=== PATIENT | male | born 1950 | race Caucasian/White ===

== ENCOUNTER 2019-01-15 07:41 | Day surgery (SDC) | payer MEDICARE ==
[2019-01-15] MEDS ORDERED: Lactated Ringers 1,000 ML IV SCH (08:15)
[2019-01-15] MEDS ORDERED: Propofol 200 MG/20 ML SDV ONE (09:22)
[2019-01-15] MEDS ORDERED: fentaNYL 100 MCG/2 ML SDV ONE (09:23)
[2019-01-15 10:57] VITALS: BP 112/82; PULSE 50
--- NOTE | 2019-01-15 15:37 | OR ---
DATE OF PROCEDURE: 01/15/2019 SURGEON: Walter Almonte MD PREOPERATIVE DIAGNOSIS: History of Woods's esophagus. POSTOPERATIVE DIAGNOSIS: History of Woods's esophagus. PROCEDURE: Esophagogastroduodenoscopy with biopsy of gastroesophageal junction. ANESTHESIA: IV anesthesia with monitored anesthesia care. INDICATION: This 68-year-old white male is referred for an upper endoscopy because of a history of Woods's esophagus. I counseled him for the procedure including risks and alternatives, and he gave his informed consent to proceed. DESCRIPTION OF PROCEDURE: The patient was placed in the left lateral decubitus position. IV anesthesia was administered by the Anesthesia Service. Time-out was held. The flexible video Olympus upper endoscope was passed through his mouth, down his esophagus, and into his stomach. The scope was easily passed through the pylorus into the duodenum reaching its third portion. The scope was then slowly withdrawn examining the mucosa throughout. The duodenal mucosa appeared unremarkable. The scope was brought up through the pylorus into the antrum. The antrum appeared unremarkable. The scope was retroflexed. The proximal stomach appeared unremarkable. The scope was straightened and brought up to the GE junction. The Z-line was not straight. We did obtain multiple, totalling at least 6 biopsies of the gastroesophageal junction. The scope was then brought proximal through the remainder of the esophagus, which otherwise appeared unremarkable and it was removed. He tolerated the procedure well. Walter Almonte MD /[id number]
== END 2019-01-15 11:05 | disposition home or self-care (01) ==
LOC: JP.SDS 07:41
PROVIDERS: ATTEND Surgery
DX: K31.89 Other diseases of stomach and duodenum (principal); K22.70 Barrett's esophagus without dysplasia; I12.9 Hypertensive chronic kidney disease with stage 1 through stage 4 chronic kidney disease, or unspecified chronic kidney disease; E11.22 Type 2 diabetes mellitus with diabetic chronic kidney disease; N18.9 Chronic kidney disease, unspecified; K21.9 Gastro-esophageal reflux disease without esophagitis; E03.9 Hypothyroidism, unspecified; Z86.010 Personal history of colon polyps
CPT/HCPCS: 88305; J2704; J3010; J7120

== ENCOUNTER 2020-04-15 08:45 | Day surgery (SDC) | payer MEDICARE ==
[2020-04-15] MEDS ORDERED: Lidocaine 1% with EPINEPHrine 1:100,000 50 ML MDV ONE (09:27)
[2020-04-15] MEDS ORDERED: Bupivacaine 0.5% 50 ML MDV ONE (09:27)
[2020-04-15] MEDS ORDERED: fentaNYL 100 MCG/2 ML SDV ONE (09:38)
[2020-04-15] MEDS ORDERED: Lidocaine 0.5% 50 ML SDV ONE (09:39)
[2020-04-15] MEDS ORDERED: Propofol 200 MG/20 ML SDV ONE ×2 (09:39→10:47)
[2020-04-15] MEDS ORDERED: Dextrose 5%-Lactated Ringers 1,000 ML IV SCH (10:00)
[2020-04-15] MEDS ORDERED: ceFAZolin 2 GM in Sodium Chloride 0.9% 100 ML IV ONE (10:45)
[2020-04-15] MEDS ORDERED: ceFAZolin 2 GM in Premix Bag 1 BAG IV ONE (10:45)
[2020-04-15] MEDS ORDERED: Acetaminophen 325 MG Tab PO ONE (12:45)
[2020-04-15 13:17] VITALS: BP 136/86; PULSE 55
--- NOTE | 2020-04-19 09:21 | OR ---
DATE OF PROCEDURE: 04/15/2020 SURGEON: Bryan Alcantara MD PREOPERATIVE DIAGNOSIS: Foreign body (wooden splinter), left hand. POSTOPERATIVE DIAGNOSIS: Foreign body (wooden splinter), left hand. OPERATIVE PROCEDURE: Removal of foreign body (a wooden splinter) of the left hand (58052). ANESTHESIA: IV block plus sedation. INDICATION FOR PROCEDURE: A 69-year-old who earlier this week was working on a board, resulted in a large sliver going into the hypothenar aspect of the left hand on the ulnar aspect. This apparently broke off and the patient was seen in a walk-in clinic and referred for surgical evaluation. The patient has 2 puncture sites, both approximately 2 cm away in the ulnar aspect of palm, and states that on the inner aspect, the wooden stick was out on the skin and he attempted pulling it out and it broke off. He has some palpable wood more or less throughout the length of the 2 puncture sites with some inflammation, but not He was started on Keflex per the walk-in clinic. Plan is to proceed with removal of foreign body. This likely will involve an incision over the entire length of the area in order to ensure that we are getting the entire length of foreign body out. Potential risks including bleeding and infection were reviewed. The patient is up-to-date on his tetanus and we will be covering with perioperative antibiotics. DETAILS OF PROCEDURE: The patient was taken to the operating room, placed in a supine position. IV sedation was administered following an IV block affecting the left hand was placed and those areas prepped and draped. Incision between the 2 points was then made and carried down through the tract of the splinter. The splinter was then retrieved in 2 pieces. Careful inspection of the tract revealed no additional . In order to facilitate somewhat faster healing, a single subdermal stitch of 5-0 Vicryl stitch was placed and dressing applied. The wound would otherwise be allowed to heal secondarily. He will begin finishing off his IV antibiotics and follow up with in [facility] next week. Bryan Alcantara MD /[id number]
== END 2020-04-15 13:28 | disposition home or self-care (01) ==
LOC: JP.SDS 08:45
PROVIDERS: ATTEND Surgery
DX: S61.442A Puncture wound with foreign body of left hand, initial encounter (principal); I12.9 Hypertensive chronic kidney disease with stage 1 through stage 4 chronic kidney disease, or unspecified chronic kidney disease; E11.22 Type 2 diabetes mellitus with diabetic chronic kidney disease; N18.9 Chronic kidney disease, unspecified; Z01.812 Encounter for preprocedural laboratory examination; Z20.822 Contact with and (suspected) exposure to COVID-19
CPT/HCPCS: 10121; A9270; J0690; J2704; J3010; J7121; U0002; J3490

== ENCOUNTER 2021-09-13 08:21 | Day surgery (SDC) | payer MEDICARE ==
[2021-09-13] MEDS ORDERED: fentaNYL 100 MCG/2 ML SDV ONE (08:50)
[2021-09-13] MEDS ORDERED: Midazolam 1 MG/ML 2 ML SDV ONE (08:50)
[2021-09-13] MEDS ORDERED: Propofol 200 MG/20 ML SDV ONE (08:50)
[2021-09-13] MEDS ORDERED: Lactated Ringers 1,000 ML IV SCH (09:00)
[2021-09-13 11:47] VITALS: BP 104/77; PULSE 68
== END 2021-09-13 11:48 | disposition home or self-care (01) ==
LOC: JP.SDS 08:21
PROVIDERS: ATTEND Family Medicine
DX: K22.70 Barrett's esophagus without dysplasia (principal); I12.9 Hypertensive chronic kidney disease with stage 1 through stage 4 chronic kidney disease, or unspecified chronic kidney disease; N18.9 Chronic kidney disease, unspecified; E11.22 Type 2 diabetes mellitus with diabetic chronic kidney disease; K21.9 Gastro-esophageal reflux disease without esophagitis; E78.5 Hyperlipidemia, unspecified; I25.2 Old myocardial infarction; Z79.810 Long term (current) use of selective estrogen receptor modulators (SERMs); Z79.899 Other long term (current) drug therapy; Z01.812 Encounter for preprocedural laboratory examination; Z20.822 Contact with and (suspected) exposure to COVID-19; Z88.5 Allergy status to narcotic agent
CPT/HCPCS: 43239; J2704; J3010; J7120; U0002; J2250

== ENCOUNTER 2023-11-19 09:57 | Emergency (ER) | payer MEDICARE ==
[2023-11-19 10:11] VITALS: BP 161/63; PULSE 47
[2023-11-19 12:05] LABS: BASOPHILS ABSOLUTE AUTO 0.05 K/uL (0.00-0.10); BASOPHILS PERCENT AUTO 0.7 % (0.1-1.3); EOSINOPHILS ABSOLUTE AUTO 0.15 K/uL (0.00-0.40); HEMATOCRIT 44.5 % (38.4-49.7); HEMOGLOBIN 15.2 g/dL (12.9-16.9); IMMATURE GRAN PERCENT AUTO 0.1 % (0.0-0.7); LYMPHOCYTES ABSOLUTE AUTO 2.15 K/uL (0.8-3.3); LYMPHOCYTES PERCENT AUTO 29.3 % (11.4-47.7); MEAN CORPUSCULAR HEMOGLOBIN 29.9 pg (31.6-35.5); MEAN CORPUSCULAR HGB CONC 34.2 g/dL (31.6-35.5); MEAN CORPUSCULAR VOLUME 87.6 fL (81.4-99.0); MONOCYTES ABSOLUTE AUTO 0.66 K/uL (0.20-0.90); NEUTROPHILS ABSOLUTE AUTO 4.33 K/uL (1.0-7.6); NEUTROPHILS PERCENT AUTO 58.9 % (40.0-78.1); PLATELET COUNT,PLT 230 K/uL (130-375); RED BLOOD CELL COUNT 5.08 M/uL (4.14-5.76); WHITE BLOOD CELL COUNT,WBC 7.4 K/uL (3.2-11.0)
[2023-11-19 12:06] LABS: IMMATURE GRAN ABSOLUTE AUTO 0.01 K/uL (0.00-0.23)
[2023-11-19 12:29] LABS: ANION GAP 15.7 mmol/L (5.0-14.0); CALCIUM 9.3 mg/dL (8.5-10.1); CREATININE 1.3 mg/dL (0.8-1.3); EST CRCL DRUG DOSING (CG) 52.87 mL/min; POTASSIUM,K 4.7 mmol/L (3.6-5.2); TROPONIN I HIGH SENSITIVITY 5.1 pg/mL (<=60.3)
== END 2023-11-19 13:59 | disposition home or self-care (01) ==
LOC: JP.ED 09:57
DX: R06.02 Shortness of breath (principal); I12.9 Hypertensive chronic kidney disease with stage 1 through stage 4 chronic kidney disease, or unspecified chronic kidney disease; N18.9 Chronic kidney disease, unspecified; E78.00 Pure hypercholesterolemia, unspecified; E11.9 Type 2 diabetes mellitus without complications; E03.9 Hypothyroidism, unspecified; Z86.16 Personal history of COVID-19; Z87.891 Personal history of nicotine dependence; Z79.899 Other long term (current) drug therapy; Z79.890 Hormone replacement therapy; Z79.82 Long term (current) use of aspirin; Z79.84 Long term (current) use of oral hypoglycemic drugs; Z88.5 Allergy status to narcotic agent
CPT/HCPCS: 36415; 71046; 71046-26; 80048; 84484; 85025; 85379; 93005; 99285